=== PATIENT | male | born 1965 | race Caucasian/White ===

== ENCOUNTER 2017-02-05 02:01 | Inpatient (IN) ==
[2017-02-05 02:17] LABS: MANUAL DIFF NEEDED? NO
[2017-02-05 02:19] LABS: EOS# 0.14 X1000 (0.0-0.7); EOS% 1.2 % (0.0-10.0); HEMATOCRIT 41.4 % (42.0-52.0); HEMOGLOBIN 14.1 g/dL (14.0-18.0); IMM GRAN# 0.03 X1000 (0.0-0.04); IMM GRAN% 0.2 % (0.0-0.5); LYMPH# 0.95 X1000 (1.2-3.4); LYMPH% 7.9 % (20.5-51.1); MCH 31.8 PG (27-31); MCHC 34.1 g/dL (33-37); MCV 93.2 FL (81-99); MONO# 0.93 X1000 (0.11-0.59); MONO% 7.7 % (1.7-9.3); MPV 10.3 FL (7.4-10.4); PLT 177 X1000 (130-400); RBC 4.44 XMIL (4.7-6.1)
[2017-02-05] MEDS ORDERED: NS 1,000 ML IV SCH ×2 (02:32→10:56)
[2017-02-05 02:39] LABS: AGAP 13; ALBUMIN 3.7 g/dL (3.5-5.0); ALKALINE PHOSPHATASE 87 U/L (32-122); AMYLASE 26 U/L (20-200); BUN 15 mg/dL (8-22); CHLORIDE 105 mmol/L (98-107); COSMO 281; GOT 19 U/L (10-34); GPT 32 U/L (10-44); LIPASE 28 U/L (13-60); POTASSIUM 3.9 mmol/L (3.5-5.1); SODIUM 139 mmol/L (136-145); TCO2 21 mmol/L (25-35); TOTAL BILIRUBIN 0.56 mg/dL (0.20-1.00)
[2017-02-05 02:40] LABS: URINE CULTURE NEEDED? NO; URINE MICRO REVIEW NEEDED? NO; URINE SOURCE CLEAN CATCH
[2017-02-05 02:42] LABS: BILIRUBIN URINE NEGATIVE (NEGATIVE); BLOOD URINE NEGATIVE (NEGATIVE); COLOR YELLOW; GLUCOSE URINE NEGATIVE (NEGATIVE); LEUKOCYTES URINE NEGATIVE (NEGATIVE); NITRITE URINE NEGATIVE (NEGATIVE); PROTEIN URINE TRACE mg/dL (NEGATIVE); SP GRAVITY URINE 1.019; TURBIDITY URINE CLEAR (CLEAR); UROBILINOGEN URINE NORMAL (NORMAL)
[2017-02-05 02:43] LABS: UR EPITHELIAL CELLS <10 /HPF (<10); URINE BACTERIA NEGATIVE /HPF; URINE RBC <10 /HPF (<10); URINE WBC <10 /HPF (<10)
[2017-02-05] MEDS ORDERED: ZOSYN 3.375 GM/NS 3.375 GM/50 ML IVPB IV ONE (04:43)
--- NOTE | 2017-02-05 04:43 | PROVIDER DOCUMENTATION ---
This chart was entered by Keith Elizondo Scribe, acting as scribe for Herve Poon MD. HPI-Abdominal Pain/GI Problem - General Chief Complaint: Abdominal Pain Stated Complaint: abdominal pain Time Seen by Provider: 02/05/17 02:05 Source: patient Allergies/Adverse Reactions: Patient Allergies Allergy/AdvReac Type Severity Reaction Status Date / Time naproxen AdvReac Intermediate Unknown Verified 02/05/17 02:05 Home Medications: Home Medication List Medication Instructions Recorded Confirmed Last Taken Type NK [No Home Medications] 02/05/17 02/05/17 Unknown History - History of Present Illness-ABD Nature of Presenting Problems: Pt is a 51 yom who presents to ER via EMS with CC of RLQ pain that started to hurt starting at 1200 yesterday afternoon. Pt reports that it was a gradual onset and hurts more when walking. Pt reports that from [id number] last night, he had 5 bouts of diarrhea. Pt reports that yesterday morning, he vomited and passed out after walking out of the bathroom (denies injury). Pt also complains of F/chills/diaphoresis. Abdominal Pain Onset Location: reports: RLQ Pain Radiation: reports: no radiation Quality of Pain: reports: sharp, stabbing Severity in ED: reports: moderate Onset/Duration: reports: other (1200 yesterday) Timing: reports: still present, improving Associated Symptoms: reports: diaphoresis, diarrhea, fever/chills, nausea, syncope, vomiting. denies: anxiety, arm pain, back/neck pain, chest pain, constipation, cough, dizziness, EENT symptoms, fatigue, genitourinary problems, headaches, heartburn, joint pain, loss of appetite, malaise, muscle aches, sinus congestion/drainage, rash, seizure, shortness of breath, sensory/motor loss, pain with inspiration, swelling/mass in abdomen, weakness, trouble walking Last BM: last night Dark Stools Present?: reports: none noticed Rectal Bleeding: reports: none Rectal Pain: reports: none Emesis Description: reports: none Review of Systems - Adult - REVIEW OF SYSTEMS - ADULT Constitutional: reports: chills, fever, fatique. denies: night sweats, weight gain, weight loss Eyes: reports: no symptoms reported Ears, Nose, Mouth & Throat: reports: no symptoms reported Cardiovascular: reports: syncope. denies: chest pain, edema, heart murmur, irregular heart rate, orthopnea, palpitations, poor circulation, PND Respiratory: reports: no symptoms reported Gastrointestinal: reports: abdominal pain, diarrhea, nausea, vomiting. denies: hematemesis, constipation, difficulty swallowing, frequent heartburn, poor appetite, rectal bleeding Genitourinary: reports: no symptoms reported Musculoskeletal: reports: no symptoms reported Integumentary: reports: no symptoms reported Neurological: reports: no symptoms reported Psychiatric: reports: no symptoms reported Endocrine: reports: no symptoms reported Hematologic/Lymphatic: reports: no symptoms reported Allergic/Immunologic: reports: no symptoms reported All Other Systems: Reviewed and Negative Past History - Adult - PAST MEDICAL HISTORY-ADULT Review of Records: reports: Nursing Assessment Review, Medications Reviewed - IMMUNIZATION STATUS Childhood Immunizations: See Nurse Assessment Flu Vaccine: See Nurse Assessment Physical Exam-General - PHYSICAL EXAM-ADULT Initial Vital Signs Reviewed: Yes - CONSTITUTIONAL General Appearance: appears well, alert, mild distress, obese. negative: no apparent distress - NECK Neck: non-tender, full range of motion, supple, normal inspection. negative: C- spine tenderness, limited range of motion, lymphadenopathy - RESPIRATORY Respiratory: chest non-tender, lungs clear, normal breath sounds, no pleuratic chest pain, no respiratory distress, no accessory muscle use. negative: respiratory distress, decreased breath sounds, accessory muscle use, crackles, rales, rhonchi, stridor, wheezing - CARDIOVASCULAR Cardiovascular: normal peripheral pulses, regular rate, rhythm. negative: bradycardia, tachycardia, irregularly irregular - GASTROINTESTINAL (ABDOMEN) Abdominal Exam: normal bowel sounds, soft, no organomegaly, no pulsatile mass, tenderness (RLQ). negative: non tender Progress - PLAN OF CARE/RESULTS Progress/Plan/Lab Results: Vital Signs - 8 hr 02/05/17 02:02 Temperature 98.4 F Pulse Rate 92 H Respiratory Rate 14 Blood Pressure 158/82 O2 Sat by Pulse Oximetry 98 Laboratory Results - last 24 hr 02/05/17 02:10 WBC 12.07 H RBC 4.44 L Hgb 14.1 Hct 41.4 L MCV 93.2 MCH 31.8 H MCHC 34.1 RDW Std Deviation 13.1 Plt Count 177 MPV 10.3 Immature Gran % (Auto) 0.2 Neut % (Auto) 83.0 H Lymph % (Auto) 7.9 L [place] % (Auto) 7.7 Eos % (Auto) 1.2 Baso % (Auto) 0.0 Immature Gran # (Auto) 0.03 Neut # (Auto) 10.02 H Lymph # (Auto) 0.95 L [place] # (Auto) 0.93 H Eos # (Auto) 0.14 Baso # (Auto) 0.00 Orders Category Date Time Status NPO Diet 02/05/17 02:06 Active AMYLASE [CHEM] Stat Lab 02/05/17 02:10 Received CBC WITH ELECTRONIC DIFF [HEME] Stat Lab 02/05/17 02:10 Completed COMPREHENSIVE METABOLIC PANEL [CHEM] Stat Lab 02/05/17 02:10 Received LIPASE [CHEM] Stat Lab 02/05/17 02:10 Received URINALYSIS W/POSS RFLX CULT [URINALYSIS] Stat Lab 02/05/17 02:06 Uncollected Result Diagrams: 02/05/17 02:10 02/05/17 02:10 - CT/MRI 1 CT Study: Abdomen, Pelvis Impression: Abnormal, See EMR Report CT Results: sigmoid diverticulitis Departure - Departure Time of Disposition Decision: 04:41 DIAGNOSIS: Diverticulitis Qualifiers: Diverticulitis site: large intestine Diverticulitis bleeding: without bleeding Diverticulitis complication: without perforation or abscess Qualified Code(s): K57.32 - Diverticulitis of large intestine without perforation or abscess without bleeding Disposition: ADMITTED INPATIENT 09 Certified Medical Emergency: Emergent Condition: Fair Referrals and Follow-Ups: None,PCP [Primary Care Provider] - This chart was documented by the indicated scribe, (Keith Elizondo Scribe) and accurately reflects the services I performed and decisions made by me, Herve Poon MD, as attested by the provider's signature.
[2017-02-05] MEDS: FLAGYL 500 MG/NS 500 MG/100 ML IVPB IV SCH ×4 (05:07→22:28)
[2017-02-05] MEDS ORDERED: NS 1,000 ML IV ONE ×2 (05:51→06:15)
[2017-02-05] MEDS ORDERED: LEVAQUIN 750 MG/D5W 750 MG/150 ML IVPB IV SCH (06:00)
[2017-02-05] MEDS ORDERED: DILAUDID IV PRN (06:32)
[2017-02-05] MEDS ORDERED: FLAGYL 500 MG/NS 500 MG/100 ML IVPB IV SCH (06:32)
[2017-02-05] MEDS ORDERED: TYLENOL PO PRN (06:32)
[2017-02-05] MEDS ORDERED: ZOFRAN IV PRN (06:32)
[2017-02-05 06:53] LABS: HEMOGLOBIN A1C 5.6 % (4.8-6.0)
--- NOTE | 2017-02-05 07:46 | HISTORY AND PHYSICAL ---
CHIEF COMPLAINT: Abdominal pain. HISTORY OF PRESENT ILLNESS: This is a 51-year-old male who has no past medical history, who started having right lower quadrant, sharp and cramping pain yesterday around noon. It was a gradual onset. Nothing made it better. Nothing made it worse. The patient began having diarrhea. He had roughly 5 episodes. After he got up from the bathroom with the last episode, he stated that he felt very dizzy, braced himself and passed out. He denies falling or injury. He woke back up spontaneously. He was unable to tell how long he was out. He had accompanying complaint of chills and diaphoresis with this episode. So, he came to the emergency room and laboratory data was obtained which showed a mildly elevated WBC at 12.07. The patient was afebrile on arrival. A CT scan was obtained of the abdomen and pelvis which showed sigmoid diverticulitis. The patient was treated with IV Flagyl in the emergency room. He was also given a dose of Zosyn. He will be admitted to the medical floor for further evaluation and history. PAST MEDICAL HISTORY: None to note. PREVIOUS SURGICAL HISTORY: 1. Colonoscopy secondary to extensive family history of cancer. The patient has a younger sibling who had colon cancer in their 20s. Last was 5-6 years ago. 2. Right ankle repair. 3. Right knee scope. ALLERGIES: Allergic to naproxen causing an unknown reaction. FAMILY HISTORY: As noted above, the patient has a sibling who was diagnosed with colon cancer in their 20s, as well as, his father having renal cell carcinoma. 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 Denies tobacco or illicit drug use. Uses alcohol very occasionally. HOME MEDICATIONS: None. REVIEW OF SYSTEMS: Fourteen point review of systems conducted with the patient. Pertinent positives listed above in the HPI. All other systems were reviewed and found to be negative. PHYSICAL EXAMINATION: VITAL SIGNS: Temperature 98.4 degrees, pulse 92, respirations 14, blood pressure 158/82, oxygen saturation 98% on room air. GENERAL: Pleasant 51-year-old male lying in the ER stretcher. Answers all questions appropriately. In no acute distress. HEENT: Head is atraumatic, normocephalic. Pupils equal, round, reactive to light. Extraocular eye movement intact. Sclerae is anicteric. Conjunctivae is pink. Oral mucosa is moist. NECK: Supple. No JVD. No thyromegaly. Trachea is midline. No cervical lymphadenopathy. CARDIAC: Regular rhythm. S1-S2 appreciated. No murmurs, gallops, rubs. LUNGS: Clear to auscultation bilaterally. No rhonchi, wheezes or rales. Symmetrical rise and fall of respirations. ABDOMEN: Protuberant, soft, nondistended. Tender to her right lower quadrant and noted rebound tenderness. Also tender to the periumbilical area. No pulsatile mass. No organomegaly. EXTREMITIES: No clubbing, cyanosis, or edema. Two plus pedal pulses. GENITOURINARY: The patient voids, otherwise deferred. NEUROLOGICAL: Alert and oriented x3. No focal or motor deficits noted. Cranial nerves 2-12 appear to be grossly intact. DIAGNOSTIC DATA: CT of the abdomen and pelvis showed diverticulitis of the sigmoid colon. LABORATORY DATA: WBC 12.07, hemoglobin 14.1, hematocrit 41.4, platelet count 177,000. Sodium 139, potassium 3.9, chloride 105, carbon dioxide 21, BUN 15, creatinine 0.7, glucose 143. Urine trace protein, trace ketones, otherwise unremarkable. ASSESSMENT AND PLAN: 1. Diverticulitis of the sigmoid colon. We will place patient on IV Flagyl and Levaquin. Normal saline IV. Hold patient NPO. Zofran 4 mg IV as needed for nausea. Start Culturelle b.i.d. and Dilaudid 1 mg IV q.3 hours for p.r.n. pain. Check a C-reactive protein, CEA, vitamin D 25 hydroxy. Recheck CBC and CMP. Consult Dr. Watkins. 2. Abdominal pain. As noted above, we will give Dilaudid p.r.n. as needed. 3. Mild leukocytosis, secondary to #1. 4. Hyperglycemia with no diagnosis of diabetes mellitus. We will order hemoglobin A1c. 5. Further recommendations per patient clinical course. Dictated by LUCITA Rowe for Barney Ball MD cc: LUCITA Rowe MD
--- NOTE | 2017-02-05 09:58 | Diag Imaging Result Document ---
PROCEDURE NAME: CT ABD/PELVIS W/ IV CONT ONLY - 02/05/2017 CT ABDOMEN AND PELVIS WITH INTRAVENOUS CONTRAST: FINDINGS: There is fatty infiltration of the liver. Normal spleen, pancreas, gallbladder, adrenal glands, and kidneys. No hydronephrosis. Normal aorta. There are inflammatory changes about the sigmoid colon. There are diverticula in this location. No free air. No abscess. No bowel obstruction. Normal appendix. The urinary bladder is moderately distended and appears normal. The prostate is not enlarged. IMPRESSION: Diverticulitis of the sigmoid colon. A preliminary report was given at 3:56 a.m.
[2017-02-05] MEDS: CULTURELLE PO SCH ×2 (10:38→22:28)
[2017-02-05] MEDS: LOVENOX SUBQ SCH (10:38)
[2017-02-05] MEDS: NS 1,000 ML IV SCH ×3 (10:39→22:27)
--- NOTE | 2017-02-05 11:45 | PROGRESS NOTE ---
DATE: 02/05/2017 The patient notes he is feeling a little bit better, having a little bit less pain than he did last night. Still hurts in the right lower quadrant. We will advance his diet slowly to clear liquids. We will give him 1 more later IV fluids. Continue Dilaudid as needed. Currently he is on Flagyl and Levaquin. We will continue to follow. Hopefully, home soon. cc: Frank Reynolds MD
[2017-02-05] MEDS ORDERED: PROTONIX IV SCH (14:45)
[2017-02-05] MEDS ORDERED: SODIUM CHLORIDE 0.9% INJ SCH (14:45)
--- NOTE | 2017-02-05 17:26 | CONSULTATION ---
DATE OF CONSULTATION: 02/05/2017 PRIMARY CARE DOCTOR: None. PRIMARY PSYCHIATRIC ARNP: Dr. Yin. REASON FOR CONSULTATION: Abdominal pain and diverticulitis on imaging. HISTORY OF PRESENT ILLNESS: Mr. Townsend is a 51-year-old male, who was admitted on 02/05/2017 with worsening abdominal pain in the periumbilical region radiating to the right and left side. According to the patient the pain started yesterday around noon and it gradually got worse. He had 5 BMs yesterday evening. Overnight he felt dizzy and passed out in the bathroom because of pain. He also had small amount of vomitus in the bathroom. The patient and his denied noticing any blood in the stools. He presented to the ER where imaging showed sigmoid diverticulitis. His white count was also elevated to 12,000. Patient was started on IV antibiotics in the ER. The patient has been noticing irritable bowel movements for some time now. He had his last colonoscopy done many years ago by Dr. Yin. He has a very strong family history of colon cancer in his sister who was diagnosed with colon cancer at age 29. She required surgery and doing better. Another brother of his is in 40s had a colonoscopy which was negative. Since being in the hospital the patient is feeling slightly better. He still complains of abdominal pain but is getting better as before. He denies any noticing any blood in the stools. PAST MEDICAL HISTORY: None. PREVIOUS SURGICAL HISTORY: 1. Colonoscopy done by Dr. Yin many years ago. 2. Right ankle repair. 3. Right knee scope. ALLERGIES: To Naprosyn causing unknown reaction. FAMILY HISTORY: Sister diagnosed with colon cancer in the rectosigmoid region at age 29, required surgery. Father had a history of renal cell carcinoma, . Mother's side of the family, maternal grandfather had colon cancer. 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 He denies history of tobacco or illicit drug use. He uses alcohol very occasionally. MEDICATION AT HOME: None. REVIEW OF SYSTEMS: He denies any current fevers, although at home he had low- grade fever of 99- 100. He denies any fevers, rigors, or chills. Currently denies any chest pain , shortness of breath, dyspnea at rest. Denies any genitourinary or neurovascular complaints. Denies history of vomiting blood or passing blood in the stools. Does complain of irritable bowel habits for some time now. MEDICATIONS IN THE HOSPITAL: Include Tylenol, Lovenox, Flagyl and Dilaudid, Culturelle, Levaquin, IV fluids is 127 per hour, Zofran as needed, Protonix IV once daily. He is currently on clear liquid diet. PHYSICAL EXAMINATION: Vital signs: Temperature 98.9 degrees, pulse of 82, respiratory 16, blood pressure 127/58, saturating 97% on room air. Body weight of 292 pounds. BMI of 37.5 kg. General Appearance: Is obese, lying in bed, in no acute distress. HEENT: Pale, mild pallor icterus. Pupils equal, react to light. Neck: Supple. Chest: Decreased breath sounds. Cardiac: Regular rhythm. No murmur. Abdomen: Discomfort in the left lower quadrant. Bowel sounds are present but hypoactive. Mild guarding in the left lower quadrant. Extremities: No cyanosis, clubbing, edema. Neurologic: Alert, awake and oriented. LABS: Hemoglobin and hematocrit is 14.1 and 41.4, white count of 12.7, platelet count of 177,000. MCV of 90.2. Sodium is 139, potassium 3.9, chloride 105, bicarb 21, anion gap of 13, BUN of 15, creatinine 0.7. Glucose of 143. Calcium is 8. Total bilirubin is 0.56, AST 19 , ALT 32, alkaline phosphatase is 87. Total protein 6, albumin of 3.7, amylase of 26, lipase of 28. CRP 43.56. CEA is 1.9. Urinalysis trace protein, trace ketones. IMAGING: CT scan done 02/05/2017 showed inflammatory changes about the sigmoid colon. Diverticula in this location, no free air. No abscess. No bowel obstruction. Normal appendix. Prostate is not enlarged. Diverticulitis of the sigmoid colon was noted. IMPRESSION AND PLAN: 1. Sigmoid diverticulitis. 2. Obesity. BMI of 37.5. 3. Irregular bowel habits. 4. Mild anemia. 5. Strong of history of colon cancer in maternal grandfather, sister at age 29 required resection. 6. Last colonoscopy within the last 3-[address] Yin. According to him, he removed a few polyps. RECOMMENDATIONS: 1. The patient will be continued on IV antibiotics for now and will be transitioned to oral antibiotics for a total of 10 days. 2. The patient was started on Culturelle 1 capsule p.o. b.i.d. for 6 weeks. 3. The patient will be on liquid diet and advance as tolerated once his abdominal pain symptoms are improved. 4. The patient was counseled to lose weight. 5. The patient will benefit from Metamucil 2 tablespoons at bedtime on discharge. 6. Patient will follow with us in the clinic in 3 weeks of discharge. At that time, we will decide about potential colonoscopy. 7. Above plan discussed with the patient and family. All questions answered. cc: MD Manas Sosa MD Gregory S. Cheatham, MD MTDD
[2017-02-06 03:46] VITALS: BP 117/55
[2017-02-06] MEDS: FLAGYL 500 MG/NS 500 MG/100 ML IVPB IV SCH (05:39)
[2017-02-06] MEDS: LOVENOX SUBQ SCH (05:39)
[2017-02-06 06:19] LABS: MANUAL DIFF NEEDED? NO
[2017-02-06 06:22] LABS: EOS# 0.13 X1000 (0.0-0.7); EOS% 1.8 % (0.0-10.0); HEMATOCRIT 37.6 % (42.0-52.0); HEMOGLOBIN 12.7 g/dL (14.0-18.0); IMM GRAN# 0.03 X1000 (0.0-0.04); IMM GRAN% 0.4 % (0.0-0.5); LYMPH# 1.44 X1000 (1.2-3.4); LYMPH% 19.6 % (20.5-51.1); MCH 31.9 PG (27-31); MCHC 33.8 g/dL (33-37); MCV 94.5 FL (81-99); MONO# 0.52 X1000 (0.11-0.59); MONO% 7.1 % (1.7-9.3); MPV 10.4 FL (7.4-10.4); NEUT% 71.1 % (42.2-75.2); PLT 149 X1000 (130-400); RBC 3.98 XMIL (4.7-6.1)
[2017-02-06 06:47] LABS: AGAP 10; ALBUMIN 3.2 g/dL (3.5-5.0); ALKALINE PHOSPHATASE 75 U/L (32-122); BUN 9 mg/dL (8-22); CALCIUM 7.8 mg/dL (8.8-10.2); CHLORIDE 107 mmol/L (98-107); COSMO 280; GOT 14 U/L (10-34); GPT 23 U/L (10-44); POTASSIUM 3.6 mmol/L (3.5-5.1); SODIUM 141 mmol/L (136-145); TCO2 24 mmol/L (25-35); TOTAL BILIRUBIN 0.48 mg/dL (0.20-1.00); TOTAL PROTEIN 6.1 g/dL (6.3-8.3)
[2017-02-06] MEDS: NS 1,000 ML IV SCH (07:06)
[2017-02-06] MEDS ORDERED: NORCO-7.5 PO PRN (09:42)
[2017-02-06] MEDS ORDERED: FLAGYL PO SCH (13:00)
--- NOTE | 2017-02-06 19:59 | DISCHARGE SUMMARY ---
ADMISSION DATE: 02/05/2017 DISCHARGE DATE: 02/06/2017 DISCHARGE DIAGNOSES: 1. Diverticulitis of the sigmoid colon. Improved. 2. Abdominal pain. Resolved. 3. Nausea, vomiting. Resolved. 4. Mild leukocytosis. Resolved. 5. Mild hypocalcemia. 6. Mild protein calorie malnutrition. CONSULTATIONS: Dr. Kofi Waterman. PROCEDURES: None. BRIEF HOSPITAL COURSE: Patient is a 51-year-old male, who was admitted as noted in the HPI, treated in usual fashion. He was changed over to oral antibiotics yesterday as well as oral diet. He tolerated well. He is still having some mild abdominal pain, but states overall is feeling better. DISPOSITION: The patient will be discharged home. He will continue Levaquin and Flagyl for another 7 days. Prescription for [place] was written as needed. He will follow up outpatient with Dr. Waterman in 2 weeks to have an endoscopy scheduled at that point. Discussed with patient to continue his soft diet for the next few days and advance as tolerated with small more frequent meals. TIME SPENT: 35 minutes was spent in discharge planning. cc: Frank Reynolds MD
[2017-02-07] MEDS ORDERED: LEVAQUIN PO SCH (09:00)
== END 2017-02-06 14:44 | disposition home or self-care (01) ==
LOC: ED 02:01 → 4N 02:02 → SUATTDRO 02:02
PROVIDERS: ATTEND Family Medicine